=== PATIENT | male | born 1975 | race Hispanic/Latino ===

== ENCOUNTER → 2018-07-11 | Outpatient (CLI) | payer MEDICARE ==
[~2018-07-11] MED LIST: LIDOCAINE 1%-EPI 1:100,000 20 ML VIAL IJ ONE
[2018-07-11 13:32] VITALS: BP 130/79
== END | disposition home or self-care (01) ==
LOC: WHH 09:00
PROVIDERS: ATTEND Surgery
DX: L02.11 Cutaneous abscess of neck (principal); L02.211 Cutaneous abscess of abdominal wall; L02.212 Cutaneous abscess of back [any part, except buttock and flank]; E11.9 Type 2 diabetes mellitus without complications; I10 Essential (primary) hypertension; E66.01 Morbid (severe) obesity due to excess calories; G47.30 Sleep apnea, unspecified; F32.9 Major depressive disorder, single episode, unspecified; F41.9 Anxiety disorder, unspecified; M54.31 Sciatica, right side
CPT/HCPCS: 10061; 87070; J3490; 10060; 10160

== ENCOUNTER → 2018-07-12 | Outpatient (CLI) | payer MEDICARE ==
[2018-07-12 09:38] VITALS: BP 154/70
== END | disposition home or self-care (01) ==
LOC: WHH 08:00
PROVIDERS: ATTEND Surgery
DX: L02.11 Cutaneous abscess of neck (principal); L02.211 Cutaneous abscess of abdominal wall; I10 Essential (primary) hypertension; E66.01 Morbid (severe) obesity due to excess calories; G47.30 Sleep apnea, unspecified; F32.9 Major depressive disorder, single episode, unspecified; F41.9 Anxiety disorder, unspecified; M54.31 Sciatica, right side
CPT/HCPCS: G0463

== ENCOUNTER → 2018-07-13 | Outpatient (CLI) | payer MEDICARE ==
[2018-07-13 15:00] VITALS: BP 164/100
== END | disposition home or self-care (01) ==
LOC: WHH 14:00
PROVIDERS: ATTEND Surgery
DX: L02.11 Cutaneous abscess of neck (principal); L02.211 Cutaneous abscess of abdominal wall; I10 Essential (primary) hypertension; E66.01 Morbid (severe) obesity due to excess calories; G47.30 Sleep apnea, unspecified; F32.9 Major depressive disorder, single episode, unspecified; F41.9 Anxiety disorder, unspecified; M54.31 Sciatica, right side
CPT/HCPCS: G0463

== ENCOUNTER → 2018-07-14 | Outpatient (CLI) | payer MEDICARE | END | disposition home or self-care (01) | LOC: WHH 13:30 | PROVIDERS: ATTEND Surgery | DX: L02.11 Cutaneous abscess of neck (principal); L02.211 Cutaneous abscess of abdominal wall; I10 Essential (primary) hypertension; E66.01 Morbid (severe) obesity due to excess calories; G47.30 Sleep apnea, unspecified; F32.9 Major depressive disorder, single episode, unspecified; F41.9 Anxiety disorder, unspecified; M54.31 Sciatica, right side | CPT/HCPCS: G0463 ==

== ENCOUNTER → 2018-07-15 | Outpatient (CLI) | payer MEDICARE ==
[2018-07-15 10:37] VITALS: BP 163/90
== END | disposition home or self-care (01) ==
LOC: WHH 10:30
PROVIDERS: ATTEND Surgery
DX: L02.11 Cutaneous abscess of neck (principal); L02.211 Cutaneous abscess of abdominal wall; I10 Essential (primary) hypertension; E66.01 Morbid (severe) obesity due to excess calories; G47.30 Sleep apnea, unspecified; F32.9 Major depressive disorder, single episode, unspecified; F41.9 Anxiety disorder, unspecified; M54.31 Sciatica, right side
CPT/HCPCS: A6209; G0463

== ENCOUNTER → 2018-07-18 | Outpatient (CLI) | payer MEDICARE ==
[2018-07-18 13:38] VITALS: BP 136/87
== END | disposition home or self-care (01) ==
LOC: WHH 09:45
PROVIDERS: ATTEND Surgery
DX: L02.11 Cutaneous abscess of neck (principal); L02.211 Cutaneous abscess of abdominal wall; L02.212 Cutaneous abscess of back [any part, except buttock and flank]; E11.9 Type 2 diabetes mellitus without complications; I10 Essential (primary) hypertension; E66.01 Morbid (severe) obesity due to excess calories; G47.30 Sleep apnea, unspecified; M54.31 Sciatica, right side; F32.9 Major depressive disorder, single episode, unspecified; F41.9 Anxiety disorder, unspecified
CPT/HCPCS: A6022; G0463

== ENCOUNTER 2018-07-26 10:00 | Outpatient (CLI) | payer MEDICARE ==
[2018-07-26 11:07] VITALS: BP 156/90
== END 2018-07-26 12:55 | disposition home or self-care (01) ==
LOC: WHH 10:00
PROVIDERS: ATTEND Surgery
DX: L02.11 Cutaneous abscess of neck (principal); L02.211 Cutaneous abscess of abdominal wall; L02.212 Cutaneous abscess of back [any part, except buttock and flank]; E11.9 Type 2 diabetes mellitus without complications; I10 Essential (primary) hypertension; E66.01 Morbid (severe) obesity due to excess calories; G47.30 Sleep apnea, unspecified; M54.31 Sciatica, right side; F32.9 Major depressive disorder, single episode, unspecified; F41.9 Anxiety disorder, unspecified
CPT/HCPCS: A6248; G0463

== ENCOUNTER → 2018-08-05 | Outpatient (CLI) | payer MEDICARE ==
[~2018-08-05] MED LIST changes: -LIDOCAINE 1%-EPI 1:100,000 20 ML VIAL IJ ONE; +LIDOCAINE HCL 1% 20 ML VIAL ONE; +LIDOCAINE/PRILOCAINE CREAM 5GM TUBE TP ONE
[2018-08-05 11:56] VITALS: BP 144/90
== END | disposition home or self-care (01) ==
LOC: WHH 10:27
PROVIDERS: ATTEND Surgery
DX: L02.213 Cutaneous abscess of chest wall (principal); L03.313 Cellulitis of chest wall; E11.9 Type 2 diabetes mellitus without complications; I10 Essential (primary) hypertension; G47.30 Sleep apnea, unspecified; E66.01 Morbid (severe) obesity due to excess calories; F41.9 Anxiety disorder, unspecified; F32.9 Major depressive disorder, single episode, unspecified
CPT/HCPCS: 10060; 87070; 87077; 87186; A4450; J3490

== ENCOUNTER → 2018-08-09 | Outpatient (CLI) | payer MEDICARE ==
[~2018-08-09] MED LIST changes: -LIDOCAINE HCL 1% 20 ML VIAL ONE; +LIDOCAINE HCL 2% JELLY 5 ML ONE; -LIDOCAINE/PRILOCAINE CREAM 5GM TUBE TP ONE
[2018-08-09 12:08] VITALS: BP 159/92
== END | disposition home or self-care (01) ==
LOC: WHH 10:00
PROVIDERS: ATTEND Surgery
DX: L02.213 Cutaneous abscess of chest wall (principal); L03.313 Cellulitis of chest wall; E11.9 Type 2 diabetes mellitus without complications; I10 Essential (primary) hypertension; G47.30 Sleep apnea, unspecified; E66.01 Morbid (severe) obesity due to excess calories; F41.9 Anxiety disorder, unspecified; F32.9 Major depressive disorder, single episode, unspecified
CPT/HCPCS: 11042